=== PATIENT | male | born 1995 | race Caucasian/White ===

== ENCOUNTER 2023-07-29 12:59 | Emergency (ER) | payer OTHER ==
[~2023-07-29 12:59] MED LIST: Iopamidol 370 76% 100 ML VIAL ONE
[2023-07-29 14:16] LABS: ALT (SGPT) 11 U/L (8-55); AST (SGOT) 9 U/L (5-34); Albumin 3.9 g/dL (3.5-5.0); Alkaline Phosphatase 48 U/L (40-110); Anion Gap 17 mmol/L (10-20); BUN (Urea Nitrogen) 7 mg/dL (8.9-20.6); Bilirubin, Total 0.5 mg/dL (0.2-1.2); Calc. Creatinine Clearance 0 mL/min (70-130); Calcium 7.8 mg/dL (7.8-10.44); Carbon Dioxide 21 mmol/L (22-29); Chloride 101 mmol/L (98-107); Estimated GFR 119; Globulin 2.9 g/dL (2.4-3.5); Glucose 118 mg/dL (70-105); Potassium 3.8 mmol/L (3.5-5.1); Protein, Total 6.8 g/dL (6.0-8.3); Sodium 135 mmol/L (136-145)
[2023-07-29 14:19] LABS: Hematocrit 19.5 % (38.8-50.0); Hemoglobin 6.7 g/dL (13.5-17.5); Mean Corpuscular HGB CONC 34.4 g/dL (32.0-36.0); Mean Corpuscular Hemoglobin 29.4 pg (27.0-33.0); Mean Corpuscular Volume 85.5 fl (81.2-95.1); Mean Platelet Volume 12.9 fl (7.4-10.4); Platelet Count 48 10x3/uL (150-450); RBC Distribution Width 15.9 % (11.5-14.5); Red Blood Cell (RBC) Count 2.28 10x6/uL (4.32-5.72); White Blood Cell (WBC) Count 0.7 10x3/uL (3.5-10.5)
[2023-07-29] MEDS ORDERED: Cefepime 2 GM VIAL ONE (14:48)
[2023-07-29 14:54] LABS: MDiff Complete? YES
[2023-07-29] MEDS ORDERED: Ondansetron ODT 4 MG TAB ONE (15:08)
[2023-07-29] MEDS ORDERED: Ondansetron PF 4 MG/2 ML Vial ONE (15:15)
[2023-07-29 16:13] LABS: Band 4 % (5-11); Lymphocytes 86 % (21-51); Neutrophil 3 % (42-75); Other Cell Types 4; Promyelocytes 3 % (0-0)
[2023-07-29] MEDS ORDERED: Ibuprofen 200 MG TAB ONE (16:13)
[2023-07-29 16:16] LABS: Reflex for Review?? YES
[2023-07-29 16:17] LABS: Microcytosis MODERATE=15-30 cells (100X) (0-5/hpf); Platelet Adequacy Comment Appears Decreased
[2023-07-29 16:45] LABS: SARS-CoV-2 NAA Rapid Test Not Detected (NotDetected)
[2023-07-29] MEDS ORDERED: Acetaminophen 500 MG TAB ONE (18:33)
== END 2023-07-29 14:00 | disposition home or self-care (01) ==
LOC: CSHERS 12:59
DX: R50.9 Fever, unspecified (principal); D61.818 Other pancytopenia
CPT/HCPCS: 36415; 70487; 71045; 80053; 83605; 85025; 85060; 87040; 96374; 96375; J0692; J1642; J2405; Q0162; Q9967